=== PATIENT | female | born 1990 | race American Indian/Alaskan Native ===

== ENCOUNTER 2016-12-24 17:12 | Emergency (ER) | payer SELFPAY ==
[2016-12-24 18:45] VITALS: BP 122/84
== END 2016-12-24 23:09 | disposition left against medical advice (07) ==
LOC: ED 17:12
DX: M54.2 Cervicalgia (principal); M54.5 Low back pain; Z53.21 Procedure and treatment not carried out due to patient leaving prior to being seen by health care provider; V49.59XA Passenger injured in collision with other motor vehicles in traffic accident, initial encounter; Y93.9 Activity, unspecified; Y92.9 Unspecified place or not applicable; Y99.9 Unspecified external cause status